=== PATIENT | female | born 1980 | race American Indian/Alaskan Native ===

== ENCOUNTER 2021-09-01 14:02 | Emergency (ER) | payer BC, MEDICAID ==
[2021-09-01 14:31] LABS: Basophils % (Auto) 0.7 % (0.0-1.8); Eosinophils # (Auto) 0.2 K/mm3 (0.0-0.4); Hematocrit 33.6 % (30.3-42.9); Hemoglobin 11.4 gm/dl (10.1-14.3); Lymphocytes # (Auto) 2.1 K/mm3 (1.2-5.4); Lymphocytes % (Auto) 33.7 % (13.4-35.0); Mean Corpuscular HGB Conc 34 % (30-34); Mean Corpuscular Volume 91 fl (79-97); Monocytes # (Auto) 0.4 K/mm3 (0.0-0.8); Monocytes % (Auto) 5.9 % (0.0-7.3); Platelet Count 295 K/mm3 (140-440); Red Blood Count 3.69 M/mm3 (3.65-5.03); Red Cell Distribution Width 15.5 % (13.2-15.2)
[2021-09-01] MEDS ORDERED: levETIRAcetam 1000 MG/NS 0.75% 1,000 MG/100 ML BAG IV ONE (14:43)
[2021-09-01 14:52] LABS: Blood Urea Nitrogen 7 mg/dL (7-17); Hemolysis Index 20
[2021-09-01 14:54] LABS: BUN/Creatinine Ratio 10
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
[2021-09-01 20:41] VITALS: BP 133/84
== END 2021-09-01 20:58 | disposition home or self-care (01) ==
LOC: ED 14:02
DX: G40.909 Epilepsy, unspecified, not intractable, without status epilepticus (principal)
CPT/HCPCS: 36415; 70450; 80048; 83880; 85025; 99284

== ENCOUNTER 2021-10-28 12:19 | Emergency (ER) | payer BC, MEDICAID ==
[2021-10-28] MEDS ORDERED: HYDROcodone/ACETAMINOPHEN 10-325MG TAB PO ONE (14:13)
[2021-10-28 15:39] LABS: Basophils # (Auto) 0.1 K/mm3 (0.0-0.1); Basophils % (Auto) 1.2 % (0.0-1.8); Eosinophils # (Auto) 0.9 K/mm3 (0.0-0.4); Eosinophils % (Auto) 9.4 % (0.0-4.3); Hemoglobin 12.2 gm/dl (10.1-14.3); Lymphocytes # (Auto) 3.9 K/mm3 (1.2-5.4); Lymphocytes % (Auto) 39.3 % (13.4-35.0); Mean Corpuscular HGB Conc 32 % (30-34); Mean Corpuscular Volume 92 fl (79-97); Monocytes # (Auto) 0.6 K/mm3 (0.0-0.8); Monocytes % (Auto) 6.3 % (0.0-7.3); Platelet Count 355 K/mm3 (140-440); Red Blood Count 4.12 M/mm3 (3.65-5.03); Red Cell Distribution Width 15.4 % (13.2-15.2)
[2021-10-28 15:57] LABS: Alanine Aminotransferase 10 units/L (7-56); Albumin 4.6 g/dL (3.9-5); Blood Urea Nitrogen 13 mg/dL (7-17); Calcium 9.2 mg/dL (8.4-10.2); Hemolysis Index 19
[2021-10-28 15:58] LABS: BUN/Creatinine Ratio 22
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
[2021-10-28 18:31] VITALS: BP 132/79
== END 2021-10-30 04:54 | disposition home or self-care (01) ==
LOC: ED 12:19
DX: M25.531 Pain in right wrist (principal); M25.532 Pain in left wrist; R10.84 Generalized abdominal pain; R51.9 Headache, unspecified; M54.2 Cervicalgia; R07.89 Other chest pain; M79.641 Pain in right hand; M79.642 Pain in left hand; V87.7XXA Person injured in collision between other specified motor vehicles (traffic), initial encounter; Y93.89 Activity, other specified; Y92.488 Other paved roadways as the place of occurrence of the external cause; Y99.8 Other external cause status
CPT/HCPCS: 36415; 70450; 71045; 71260; 72125; 73110; 73130; 74177; 80053; 85025; 99284; Q9967